=== PATIENT | female | born 1960 | race American Indian/Alaskan Native ===

== ENCOUNTER 2020-12-03 22:53 | Emergency (ER) | payer MEDICARE ==
[2020-12-03 23:35] VITALS: BP 148/73
== END 2020-12-03 23:35 | disposition left against medical advice (07) ==
LOC: ED 22:53
DX: T78.40XA Allergy, unspecified, initial encounter (principal); Z53.21 Procedure and treatment not carried out due to patient leaving prior to being seen by health care provider